=== PATIENT | male | born 1950 | race Caucasian/White ===

== ENCOUNTER → 2016-10-31 | Outpatient (CLI) | payer MEDICARE, OTHER ==
[2016-10-31 14:57] LABS: PROTHROMBIN TIME 29.3 SEC (11.4-15.4)
== END ==
LOC: OD 14:11
PROVIDERS: ATTEND Internal Medicine
DX: I48.2 Chronic atrial fibrillation (principal)
CPT/HCPCS: 36415; 85610

== ENCOUNTER → 2016-12-22 | Outpatient (CLI) | payer MEDICARE, OTHER ==
[2016-12-22 14:59] LABS: PROTHROMBIN TIME 25.1 SEC (11.4-15.4)
== END ==
LOC: OD 13:15
PROVIDERS: ATTEND Internal Medicine
DX: I48.2 Chronic atrial fibrillation (principal)
CPT/HCPCS: 36415; 85610

== ENCOUNTER → 2017-04-19 | Outpatient (CLI) | payer MEDICARE, OTHER ==
[2017-04-19 17:19] LABS: PROTHROMBIN TIME 24.6 SEC (11.4-15.4)
== END ==
LOC: OD 16:14
PROVIDERS: ATTEND Internal Medicine
DX: I48.2 Chronic atrial fibrillation (principal)
CPT/HCPCS: 36415; 85610

== ENCOUNTER → 2017-05-18 | Outpatient (CLI) | payer MEDICARE, OTHER ==
[2017-05-18 17:30] LABS: PROTHROMBIN TIME 22.2 SEC (11.4-15.4)
== END ==
LOC: OD 16:14
PROVIDERS: ATTEND Internal Medicine
DX: I48.2 Chronic atrial fibrillation (principal)
CPT/HCPCS: 36415; 85610

== ENCOUNTER → 2017-06-16 | Outpatient (CLI) | payer MEDICARE, OTHER ==
[2017-06-16 18:52] LABS: PROTHROMBIN TIME 28.6 SEC (11.4-15.4)
== END ==
LOC: OD 16:40
PROVIDERS: ATTEND Internal Medicine
DX: I48.2 Chronic atrial fibrillation (principal); Z79.01 Long term (current) use of anticoagulants
CPT/HCPCS: 36415; 85610

== ENCOUNTER → 2017-07-13 | Outpatient (CLI) | payer MEDICARE, OTHER ==
[2017-07-13 16:21] LABS: PROTHROMBIN TIME 22.4 SEC (11.4-15.4)
== END ==
LOC: OD 15:23
PROVIDERS: ATTEND Internal Medicine
DX: I48.2 Chronic atrial fibrillation (principal)
CPT/HCPCS: 36415; 85610

== ENCOUNTER → 2017-07-26 | Outpatient (CLI) | payer MEDICARE, OTHER ==
[2017-07-26 15:16] LABS: PROTHROMBIN TIME 34.9 SEC (11.4-15.4)
== END ==
LOC: OD 14:11
PROVIDERS: ATTEND Internal Medicine
DX: I48.2 Chronic atrial fibrillation (principal); Z79.01 Long term (current) use of anticoagulants
CPT/HCPCS: 36415; 85610

== ENCOUNTER → 2017-08-24 | Outpatient (CLI) | payer MEDICARE, OTHER | LOC: OD 15:04 | PROVIDERS: ATTEND Internal Medicine | DX: I48.2 Chronic atrial fibrillation (principal) | CPT/HCPCS: 36415; 85610 ==

== ENCOUNTER → 2017-10-06 | Outpatient (CLI) | payer MEDICARE, OTHER ==
[2017-10-06 14:43] LABS: INTERNATIONAL RATION (INR) 3.12; PROTHROMBIN TIME 33.6 SEC (11.4-15.4)
== END ==
LOC: OD 13:56
PROVIDERS: ATTEND Internal Medicine
DX: I48.2 Chronic atrial fibrillation (principal)
CPT/HCPCS: 36415; 85610

== ENCOUNTER → 2017-10-19 | Outpatient (CLI) | payer MEDICARE, OTHER ==
[2017-10-19 15:20] LABS: INTERNATIONAL RATION (INR) 1.81
== END ==
LOC: OD 14:12
PROVIDERS: ATTEND Internal Medicine
DX: I48.2 Chronic atrial fibrillation (principal); Z79.01 Long term (current) use of anticoagulants
CPT/HCPCS: 36415; 85610

== ENCOUNTER → 2017-11-17 | Outpatient (CLI) | payer MEDICARE, OTHER | LOC: OD 16:33 | PROVIDERS: ATTEND Internal Medicine | DX: I48.2 Chronic atrial fibrillation (principal); Z79.01 Long term (current) use of anticoagulants | CPT/HCPCS: 36415; 85610 ==

== ENCOUNTER → 2018-01-12 | Outpatient (CLI) | payer MEDICARE, OTHER ==
[2018-01-12 10:58] LABS: PROTHROMBIN TIME 21.7 SEC (11.4-15.4)
== END ==
LOC: OD 10:06
PROVIDERS: ATTEND Internal Medicine
DX: I48.2 Chronic atrial fibrillation (principal)
CPT/HCPCS: 36415; 85610

== ENCOUNTER → 2018-01-30 | Outpatient (CLI) | payer MEDICARE, OTHER ==
[2018-01-30 16:39] LABS: INTERNATIONAL RATION (INR) 1.86; PROTHROMBIN TIME 22.3 SEC (11.4-15.4)
== END ==
LOC: OD 15:31
PROVIDERS: ATTEND Internal Medicine
DX: I48.2 Chronic atrial fibrillation (principal); Z79.01 Long term (current) use of anticoagulants
CPT/HCPCS: 36415; 85610

== ENCOUNTER → 2018-02-14 | Outpatient (CLI) | payer MEDICARE, OTHER ==
[2018-02-14 18:57] LABS: INTERNATIONAL RATION (INR) 1.65; PROTHROMBIN TIME 20.3 SEC (11.4-15.4)
== END ==
LOC: OD 17:31
PROVIDERS: ATTEND Internal Medicine
DX: I48.2 Chronic atrial fibrillation (principal)
CPT/HCPCS: 36415; 85610

== ENCOUNTER → 2018-03-07 | Outpatient (CLI) | payer MEDICARE, OTHER ==
[2018-03-07 16:14] LABS: PROTHROMBIN TIME 30.8 SEC (11.4-15.4)
== END ==
LOC: OD 14:50
PROVIDERS: ATTEND Internal Medicine
DX: I48.2 Chronic atrial fibrillation (principal); Z79.01 Long term (current) use of anticoagulants
CPT/HCPCS: 36415; 85610

== ENCOUNTER → 2018-03-27 | Outpatient (CLI) | payer MEDICARE, OTHER ==
--- NOTE | 2018-03-27 11:51 | RADIOLOGY REPORT (SQ) ---
EXAM DESCRIPTION: CHEST PA/LATERAL COMPLETED DATE/TIME: 03/27/2018 11:34 am REASON FOR STUDY: COUGH COMPARISON: None. EXAM PARAMETERS: NUMBER OF VIEWS: two views TECHNIQUE: Digital Frontal and Lateral radiographic views of the chest acquired. RADIATION DOSE: NA LIMITATIONS: none FINDINGS: LUNGS AND PLEURA: No opacities, masses or pneumothorax. No pleural effusion. MEDIASTINUM AND HILAR STRUCTURES: Calcified right hilar lymph node and medial right upper lobe calcif ied granuloma. HEART AND VASCULAR STRUCTURES: Heart normal size. No evidence for failure. BONES: Osteopenic. Diffuse degenerative disc changes thoracic spine HARDWARE: None in the chest. OTHER: No other significant finding. IMPRESSION: No acute changes TECHNICAL DOCUMENTATION: JOB ID: [id number] [email or web address] All Rights Reserved Reading location - IP/workstation name: [email or web address]
[2018-03-27 12:03] LABS: ALANINE AMINOTRANSFERASE 23 U/L (21-72); ALBUMIN 4.2 g/dL (3.5-5.0); ALKALINE PHOSPHATASE 69 U/L (38-126); ANION GAP 12 (5-19); ASPARTATE AMINO TRANSFERASE 21 U/L (17-59); BILIRUBIN,DIRECT 0.3 mg/dL (0.0-0.4); BILIRUBIN,TOTAL 0.6 mg/dL (0.2-1.3); BLOOD UREA NITROGEN 19 mg/dL (7-20); CARBON DIOXIDE 28 mmol/L (22-30); CHLORIDE 107 mmol/L (98-107); CHOLESTEROL 92.93 mg/dL (0-200); GLUCOSE 176 mg/dL (75-110); POTASSIUM 4.4 mmol/L (3.6-5.0); PROTHROMBIN TIME 25.5 SEC (11.4-15.4); SODIUM 146.5 mmol/L (137-145); TOTAL PROTEIN 7.7 g/dL (6.3-8.2); TRIGLYCERIDES 106 mg/dL (<150)
[2018-03-27 12:13] LABS: DIRECT LDL 42 mg/dL (<100)
== END ==
LOC: OD 10:49
PROVIDERS: ATTEND Internal Medicine
DX: E78.2 Mixed hyperlipidemia (principal); R05 Cough; E11.65 Type 2 diabetes mellitus with hyperglycemia; I48.2 Chronic atrial fibrillation
CPT/HCPCS: 36415; 71046; 80053; 80061; 82043; 82570; 83036; 85610

== ENCOUNTER → 2018-07-11 | Outpatient (CLI) | payer MEDICARE, OTHER ==
[2018-07-11 18:03] LABS: PROTHROMBIN TIME 40.8 SEC (11.4-15.4)
== END ==
LOC: OD 16:47
PROVIDERS: ATTEND Internal Medicine
DX: I48.2 Chronic atrial fibrillation (principal)
CPT/HCPCS: 36415; 85610

== ENCOUNTER → 2018-07-24 | Outpatient (CLI) | payer MEDICARE, OTHER ==
[2018-07-24 11:57] LABS: PROTHROMBIN TIME 32.6 SEC (11.4-15.4)
== END ==
LOC: OD 10:14
PROVIDERS: ATTEND Internal Medicine
DX: I48.2 Chronic atrial fibrillation (principal); Z51.81 Encounter for therapeutic drug level monitoring; Z79.01 Long term (current) use of anticoagulants
CPT/HCPCS: 36415; 85610

== ENCOUNTER 2018-07-26 16:58 | Emergency (ER) | payer MEDICARE, OTHER ==
--- NOTE | 2018-07-26 17:53 | ER Document Report ---
ED Medical Screen (RME) - General Chief Complaint: Dizziness Stated Complaint: DIZZY Time Seen by Provider: 07/26/18 17:45 Notes: 67 years old male presents today with dizziness and lightheadedness over the last 2-3 weeks. He has been losing weight within a month he has lost about 15 pounds. He takes digoxin, Cardizem, metoprolol for his blood pressure and A. fib. History of diabetes, hypertension and A. fib. Smokes half a pack a day EKG shows heart rate of around 40 bpm. TRAVEL OUTSIDE OF THE [place] IN LAST 30 DAYS: No - Related Data Allergies/Adverse Reactions: No Known Allergies Allergy (Verified 07/26/18 17:00) Physical Exam - Vital signs Vitals: Temp Pulse Resp BP Pulse Ox 97.8 F 44 L 20 116/57 L 99 07/26/18 17:25 07/26/18 17:25 07/26/18 17:25 07/26/18 17:25 07/26/18 17:25 Course - Vital Signs Vital signs: Temp Pulse Resp BP Pulse Ox 97.8 F 44 L 20 116/57 L 99 07/26/18 17:25 07/26/18 17:25 07/26/18 17:25 07/26/18 17:25 07/26/18 17:25 Doctor's Discharge - Discharge Referrals: PATR[facility] S[facility] SCREEN FRAME ASSEMBLER [Primary Care Provider] - Follow up as needed
--- NOTE | 2018-07-26 18:29 | EKG REPORT ---
SEVERITY:- ABNORMAL ECG - JUNCTIONAL ESCAPE RHYTHM BORDERLINE T ABNORMALITIES, INFERIOR LEADS : Confirmed by: Regan Linton MD 26-Jul-2018 18:28:36
[2018-07-26 18:46] LABS: ABSOLUTE BASOPHILS # (AUTO) 0.1 10^3/uL (0.0-0.2); ABSOLUTE EOSINOPHILS # (AUTO) 0.3 10^3/uL (0.0-0.6); ABSOLUTE LYMPHOCYTES (AUTO) 1.7 10^3/uL (0.5-4.7); ABSOLUTE MONOCYTES (AUTO) 0.7 10^3/uL (0.1-1.4); ABSOLUTE NEUT (AUTO) 5.6 10^3/uL (1.7-8.2); BASOPHILS % (AUTO) 0.6 % (0-2); EOSINOPHILS % (AUTO) 3.6 % (0-6); HEMATOCRIT 32.8 % (37.9-51.0); HEMOGLOBIN 10.9 g/dL (13.5-17.0); LYMPHOCYTES % (AUTO) 20.6 % (13-45); MEAN CORPUSCULAR HEMOGLOBIN 28.4 pg (27.0-33.4); MEAN CORPUSCULAR HGB CONC 33.1 g/dL (32.0-36.0); MEAN CORPUSCULAR VOLUME 86 fl (80-97); MONOCYTES % (AUTO) 8.4 % (3-13); PLATELET COUNT 207 10^3/uL (150-450); RED BLOOD COUNT 3.83 10^6/uL (4.35-5.55); SEGMENTED NEUTROPHILS % (AUTO) 66.8 % (42-78); TOTAL CELLS COUNTED % (AUTO) 100 %; WHITE BLOOD COUNT 8.3 10^3/uL (4.0-10.5)
[2018-07-26 18:51] LABS: INTERNATIONAL RATION (INR) 3.49; PROTHROMBIN TIME 36.7 SEC (11.4-15.4)
[2018-07-26 19:10] LABS: ALANINE AMINOTRANSFERASE 21 U/L (21-72); ALBUMIN 3.9 g/dL (3.5-5.0); ALKALINE PHOSPHATASE 82 U/L (38-126); ANION GAP 11 (5-19); ASPARTATE AMINO TRANSFERASE 20 U/L (17-59); BILIRUBIN,DIRECT 0.2 mg/dL (0.0-0.4); BILIRUBIN,TOTAL 0.4 mg/dL (0.2-1.3); BLOOD UREA NITROGEN 23 mg/dL (7-20); CALCIUM 9.2 mg/dL (8.4-10.2); CARBON DIOXIDE 23 mmol/L (22-30); CHLORIDE 107 mmol/L (98-107); CREATINE KINASE 44 U/L (55-170); DIGOXIN 1.25 ng/mL (0.8-2.0); GLUCOSE 262 mg/dL (75-110); POTASSIUM 4.8 mmol/L (3.6-5.0); SODIUM 140.9 mmol/L (137-145); TOTAL PROTEIN 7.2 g/dL (6.3-8.2)
[2018-07-26 19:19] LABS: CREATINE KINASE MB 0.77 ng/mL (<4.55)
[2018-07-26 19:24] LABS: TROPONIN I < 0.012 ng/mL
--- NOTE | 2018-07-26 19:53 | ER Document Report ---
ED General - General Chief Complaint: Dizziness Stated Complaint: DIZZY Time Seen by Provider: 07/26/18 17:45 Notes: Patient is a 67-year-old male with a past medical history of atrial fibrillation currently anticoagulated on warfarin, rate controlled with digoxin , metoprolol, diltiazem who presents with 1 month of intermittent lightheadedness, exertional shortness of breath and fatigue. The patient has lost 50 pounds over the past several months. He denies any chest pain. States that he came to the hospital today versus the past several days because he actually informed his today of the symptoms that he had been having. She checked his vitals, found his heart rate to be low prompting them to come to the emergency department. He did have an echocardiogram earlier today as he had contacted his sales and service agent about his symptoms and this had been ordered. Patient denies a history of similar symptoms in the past. He notes that when he is resting he feels completely fine. Exerting himself does trigger his lightheadedness. TRAVEL OUTSIDE OF THE [place] IN LAST 30 DAYS: No - Related Data Allergies/Adverse Reactions: No Known Allergies Allergy (Verified 07/26/18 17:00) Past Medical History - General Information source: Patient - Social History Smoking Status: Current Every Day Smoker Chew tobacco use (# tins/day): No Frequency of alcohol use: Rare Drug Abuse: None Lives with: Spouse/Significant other Family History: Reviewed & Not Pertinent Patient has suicidal ideation: No Patient has homicidal ideation: No - Past Medical History Cardiac Medical History: Reports: Hx Atrial Fibrillation, Hx Hypercholesterolemia, Hx Hypertension Endocrine Medical History: Reports: Hx Diabetes Mellitus Type 2 Renal/ Medical History: Denies: Hx Peritoneal Dialysis Review of Systems - Review of Systems Notes: Constitutional: Negative for fever. HENT: Negative for sore throat. Eyes: Negative for visual changes. Cardiovascular: Negative for chest pain. Positive for bradycardia Respiratory: Positive for exertional dyspnea Gastrointestinal: Negative for abdominal pain, vomiting or diarrhea. Genitourinary: Negative for dysuria. Musculoskeletal: Negative for back pain. Skin: Negative for rash. Neurological: Negative for headaches, weakness or numbness. 10 point ROS negative except as marked above and in HPI. Physical Exam - Vital signs Vitals: Temp Pulse Resp BP Pulse Ox 97.8 F 44 L 20 116/57 L 99 07/26/18 17:25 07/26/18 17:25 07/26/18 17:25 07/26/18 17:25 07/26/18 17:25 Interpretation: Bradycardic Notes: PHYSICAL EXAMINATION: GENERAL: Well-appearing, well-nourished and in no acute distress. HEAD: Atraumatic, normocephalic. EYES: Pupils equal round and reactive to light, extraocular movements intact, sclera anicteric, conjunctiva are normal. ENT: nares patent, oropharynx clear without exudates. Moist mucous membranes. NECK: Normal range of motion, supple without lymphadenopathy LUNGS: Breath sounds clear to auscultation bilaterally and equal. No wheezes rales or rhonchi. HEART: Irregularly irregular bradycardia without murmurs ABDOMEN: Soft, nontender, normoactive bowel sounds. No guarding, no rebound. No masses appreciated. EXTREMITIES: Normal range of motion, no pitting or edema. No cyanosis. NEUROLOGICAL: No focal neurological deficits. Moves all extremities spontaneously and on command. PSYCH: Normal mood, normal affect. SKIN: Warm, Dry, normal turgor, no rashes or lesions noted. Course - Re-evaluation Re-evalutation: 07/26/18 19:55 Patient presents with likely medication induced bradycardia that has become symptomatic with associated lightheadedness and exertional intolerance. Symptoms have been ongoing for the past 1 month. Labs unremarkable with exception of a mild acute kidney injury likely secondary to dehydration. Troponin normal. Patient is on a significant amount of medication including digoxin, diltiazem and metoprolol. I have advised him to discontinue diltiazem and continue the digoxin and metoprolol. I have also requested that he immediately contact his sales and service agent regarding these medication changes. His INR is also noted to be supratherapeutic. I have advised him to hold his Coumadin for 1 day and then restart the medication as regularly prescribed. We have also discussed considering transition to a NOAC. At this time will discharge with return precautions and follow-up recommendations. Verbal discharge instructions given a the bedside and opportunity for questions given. Medication warnings reviewed. Patient is in agreement with this plan and has verbalized understanding of return precautions and the need for primary care follow-up in the next 24-72 hours. - Vital Signs Vital signs: Temp Pulse Resp BP Pulse Ox 97.8 F 44 L 15 108/62 99 10/18/18 17:25 07/26/18 17:25 07/26/18 19:01 07/26/18 19:01 07/26/18 19:01 - Laboratory Result Diagrams: 07/26/18 18:25 07/26/18 18:25 Laboratory results interpreted by me: 07/26/18 07/26/18 07/26/18 18:25 18:25 18:25 RBC 3.83 L Hgb 10.9 L Hct 32.8 L RDW 15.0 H PT 36.7 H BUN 23 H Creatinine 1.58 H Est GFR ( Amer) 53 L Est GFR (Non-Af Amer) 44 L Glucose 262 H Creatine Kinase 44 L - EKG Interpretation by Me Additional EKG results interpreted by me: 07/26/18 19:56 Junctional escape rhythm, bradycardia, rate 40. No ST elevations or depressions. QTC 353. Discharge - Discharge Clinical Impression: Drug-induced bradycardia, Lightheadedness Condition: Good Disposition: HOME, SELF-CARE Additional Instructions: Please discontinue your diltiazem. Continue your digoxin and metoprolol as prescribed. Please contact her sales and service agent immediately regarding your medication changes and your emergency department visit today. You should also hold your Coumadin for 1 day as your INR was supratherapeutic today at 3.5. Your labs have been included for your reference. Return if you pass out, develop chest pain, become short of breath, or have any other symptoms that are worrisome to you. Referrals: PATRIC H[facility] HIDE BUFFER [Primary Care Provider] - Follow up as needed
[2018-07-26 20:23] VITALS: BP 105/56
== END 2018-07-26 20:15 | disposition home or self-care (01) ==
LOC: ER 16:58
DX: R00.1 Bradycardia, unspecified (principal); T50.905A Adverse effect of unspecified drugs, medicaments and biological substances, initial encounter; R42 Dizziness and giddiness; I48.91 Unspecified atrial fibrillation; F17.200 Nicotine dependence, unspecified, uncomplicated; E78.00 Pure hypercholesterolemia, unspecified; E11.9 Type 2 diabetes mellitus without complications; Z79.01 Long term (current) use of anticoagulants
CPT/HCPCS: 36415; 80053; 80162; 82550; 82553; 84484; 85025; 85610; 93005; 93010; 99284

== ENCOUNTER → 2018-07-26 | Outpatient (CLI) | payer MEDICARE, OTHER ==
--- NOTE | 2018-07-26 20:33 | XCELERA REPORT ---
[address] [address] Transthoracic Echocardiogram Report Name: HEATHER FOOTE Age: 67 yrs Gender: Male : 1950 Patient Status: Outpatient Patient Location: [facility] Study Date: 07/26/2018 09:21 AM Height: 73 in Weight: 230 lb BSA: 2.3 m2 Reason For Study: A FIB Ordering Physician: RAVEN, NO Performed By: Deneen Theodore Interpretation Summary Limited study due ti 239# and 6'1" inch tall. BSA 2.28m2. No significant Post pericardial effusion Calcific Aortic valvular stenosis, mild by doppler, configuration not visualised, cannot r/o bicuspid valvular disease, probably not BAV due to no AR and no Ao root enlargement. No MS, no MR but LA is probably mild/mod enlarged with no obvious LA clot. LV shows no LVH, no LV enlargement, Normal LVEF >65% hased on PLAX and A4C view lacking A2C view correlation. Incomplete LV segmental analysis, due to lacking certain views. see pictorals. R heart is also poorly seen , RVSP best estim to be 41 mm Hg or mod pulm. hypertension, with IVC dilated to 21mm. MMode/2D Measurements & Calculations RVDd: 3.8 cm LVIDd: 5.3 cm FS: 37.9 % Ao root diam: 3.5 cm IVSd: 0.98 cm LVIDs: 3.3 cm EDV(Teich): 137.6 ml LVPWd: 0.98 cm ESV(Teich): 44.6 ml Ao root area: 9.6 cm2 LA dimension: 4.5 cm EF(Teich): 67.6 % Doppler Measurements & Calculations MV E max vadim: MV P1/2t max vadim: Ao V2 max: LV V1 max P.4 cm/sec 90.8 cm/sec 250.1 cm/sec 4.4 mmHg MV A max vadim: MV P1/2t: 75.5 msec Ao max PG: LV V1 mean P.6 cm/sec MVA(P1/2t): 2.9 cm2 25.4 mmHg 2.2 mmHg MV E/A: 3.1 MV dec slope: Ao V2 mean: LV V1 max: 184.1 cm/sec 104.8 cm/sec 352.5 cm/sec2 Ao mean PG: LV V1 mean: MV dec time: 0.24 sec 15.3 mmHg 70.4 cm/sec Ao V2 VTI: 51.4 cm LV V1 VTI: 19.2 cm TV V2 max: PA V2 max: MV P1/2t-pr_phl: 256.3 cm/sec 92.3 cm/sec 75.5 msec TV max PG: PA max P.4 mmHg 26.3 mmHg Left Ventricle The left ventricle is grossly normal size. There is normal left ventricular wall thickness. The left ventricular ejection fraction is normal. LV diastolic function not assessed. Not all wall segments were well visualized. There is inferoseptal wall mild hypokinesis. No standard apical 2 chamber view for review. There is no thrombus. Right Ventricle The right ventricle is grossly normal size. Atria The right atrium is normal in size. GEMMA on only the apical 4 chamber view is 47.8cc.m2, there is no apical 2 chamber view to calculate a true biplane GEMMA. Overall opinion is there is mild/mod LA enlargement. The interatrial septum is intact with no evidence for an atrial septal defect. Mitral Valve There is mild mitral annular calcification. The mitral valve is normal in structure and function. There is no evidence of mitral valve prolapse. There is no mitral valve stenosis. There is no mitral regurgitation noted. Aortic Valve The aortic valve is normal in structure but functionally abnormal. There is systolic doming of the aortic valve leaflets(s). The aortic valve is moderately calcified. The aortic valve is not well visualized secondary to technical limitations. Cannot exclude aortic valvular vegetation. There is mild aortic stenosis. There is a peak gradient of 25 mm of Hg. MPG is 15mm Hg. No aortic regurgitation is present. Tricuspid Valve The tricuspid valve is not well visualized secondary to technical limitations. Best estimated RVSP is approximately 26+15= 41 mm/Hg. Pulmonic Valve The pulmonic valve is not well visualized. Great Vessels There is aortic root sclerosis/calcification. The aortic root is normal size. The inferior vena cava appeared dilated and decreased < 50% with respiration (RAP 15-20 mmHg). Effusions There is no pericardial effusion. I WMSI = 1.11 % Normal = 89 Segments Size X - Cannot 1 - Normal 2 - 3 - Akinetic4 - 1-2 small Interpret Hypokinetic Dyskinetic 3-5 moderate 5 - 6-14 large Aneurysmal 15-16 diffuse : RAVEN, NO > Regan Linton
== END ==
LOC: SP 08:29
PROVIDERS: ATTEND Nurse Practitioner
DX: I48.91 Unspecified atrial fibrillation (principal)
CPT/HCPCS: 93306

== ENCOUNTER → 2018-08-15 | Outpatient (CLI) | payer MEDICARE, OTHER ==
[2018-08-15 15:56] LABS: INTERNATIONAL RATION (INR) 2.52; PROTHROMBIN TIME 28.4 SEC (11.4-15.4)
== END ==
LOC: OD 15:11
PROVIDERS: ATTEND Internal Medicine
DX: I48.2 Chronic atrial fibrillation (principal)
CPT/HCPCS: 36415; 85610

== ENCOUNTER → 2018-09-24 | Outpatient (CLI) | payer MEDICARE, OTHER ==
[2018-09-24 16:25] LABS: INTERNATIONAL RATION (INR) 3.34; PROTHROMBIN TIME 35.4 SEC (11.4-15.4)
== END ==
LOC: OD 15:03
PROVIDERS: ATTEND Internal Medicine
DX: I48.2 Chronic atrial fibrillation (principal)
CPT/HCPCS: 36415; 85610

== ENCOUNTER → 2018-10-24 | Outpatient (CLI) | payer MEDICARE, OTHER ==
[2018-10-24 13:15] LABS: INTERNATIONAL RATION (INR) 2.88; PROTHROMBIN TIME 31.5 SEC (11.4-15.4)
== END ==
LOC: OD 12:07
PROVIDERS: ATTEND Internal Medicine
DX: I48.2 Chronic atrial fibrillation (principal)
CPT/HCPCS: 36415; 85610

== ENCOUNTER → 2018-11-23 | Outpatient (CLI) | payer MEDICARE, OTHER ==
[2018-11-23 17:50] LABS: PROTHROMBIN TIME 30.8 SEC (11.4-15.4)
== END ==
LOC: OD 15:59
PROVIDERS: ATTEND Internal Medicine
DX: I48.2 Chronic atrial fibrillation (principal)
CPT/HCPCS: 36415; 85610

== ENCOUNTER → 2018-12-20 | Outpatient (CLI) | payer MEDICARE, OTHER ==
[2018-12-20 17:06] LABS: INTERNATIONAL RATION (INR) 3.07; PROTHROMBIN TIME 33.1 SEC (11.4-15.4)
== END ==
LOC: OD 16:13
PROVIDERS: ATTEND Internal Medicine
DX: I48.2 Chronic atrial fibrillation (principal)
CPT/HCPCS: 36415; 85610

== ENCOUNTER → 2019-01-16 | Outpatient (CLI) | payer MEDICARE, OTHER ==
[2019-01-16 15:03] LABS: INTERNATIONAL RATION (INR) 2.67; PROTHROMBIN TIME 29.7 SEC (11.4-15.4)
== END ==
LOC: OD 13:59
PROVIDERS: ATTEND Internal Medicine
DX: I48.2 Chronic atrial fibrillation (principal)
CPT/HCPCS: 36415; 85610

== ENCOUNTER → 2019-02-14 | Outpatient (CLI) | payer MEDICARE, OTHER ==
[2019-02-14 11:13] LABS: INTERNATIONAL RATION (INR) 3.04; PROTHROMBIN TIME 32.9 SEC (11.4-15.4)
== END ==
LOC: OD 10:32
PROVIDERS: ATTEND Internal Medicine
DX: I48.2 Chronic atrial fibrillation (principal)
CPT/HCPCS: 36415; 85610

== ENCOUNTER → 2019-03-20 | Outpatient (CLI) | payer MEDICARE, OTHER ==
[2019-03-20 09:41] LABS: INTERNATIONAL RATION (INR) 2.41; PROTHROMBIN TIME 27.4 SEC (11.4-15.4)
== END ==
LOC: OD 09:03
PROVIDERS: ATTEND Internal Medicine
DX: I48.2 Chronic atrial fibrillation (principal)
CPT/HCPCS: 36415; 85610

== ENCOUNTER → 2019-04-18 | Outpatient (CLI) | payer MEDICARE, OTHER ==
[2019-04-18 13:39] LABS: INTERNATIONAL RATION (INR) 2.84; PROTHROMBIN TIME 30.4 SEC (11.4-15.4)
== END ==
LOC: OD 12:26
PROVIDERS: ATTEND Internal Medicine
DX: I48.2 Chronic atrial fibrillation (principal)
CPT/HCPCS: 36415; 85610

== ENCOUNTER 2019-09-03 06:37 | Day surgery (SDC) | payer MEDICARE, OTHER ==
[~2019-09-03 06:37] MED LIST: BUPIVACAINE HCL 0.75% INJ/PF (7.5 MG/1 ML) 10 ML SDV OS PRN; KETOROLAC TROMETHAMINE 0.45% 4 DROP/0.4 ML DROPERETTE OS PRN; LIDOCAINE 4% INJ/PF (40 MG/ML) 5 ML AMPUL OS PRN
[2019-09-03] MEDS ORDERED: MIDAZOLAM 2 MG/2 ML INJ ONE (06:46)
[2019-09-03] MEDS ORDERED: FENTANYL CITRATE INJ/PF 100 MCG/2 ML AMPUL ONE (06:46)
[2019-09-03] MEDS ORDERED: ONDANSETRON HCL INJ/PF 4 MG/2 ML SDV ONE (06:46)
[2019-09-03] MEDS: BESIFLOXACIN HCL 0.6% OPH SUSP 5 ML BOTTLE OS PRN ×4 (06:55→08:00)
[2019-09-03] MEDS: CYCLOPENTOLATE 0.2%/PHENYLEPHRINE 1% OPH SOLN 2 ML OS PRN ×3 (06:55→07:15)
[2019-09-03] MEDS: TROPICAMIDE 1% OPH SOLN 15 ML OS PRN ×3 (06:55→07:15)
[2019-09-03] MEDS: TETRACAINE HCL 0.5% OPH SOLN 4 ML OS PRN ×4 (06:55→07:37)
[2019-09-03] MEDS: CHONDR SU A NA/HYALUR INTRAOC KIT (SURGICARE) ONE ×2 (07:44)
[2019-09-03] MEDS: EPINEPHRINE INJ/PF 1 MG/1 ML AMPULE ONE ×2 (07:44)
[2019-09-03] MEDS: LIDOCAINE 1% INJ-PF (10 MG/ML) 30 ML SDV ONE ×2 (07:44)
[2019-09-03] MEDS: DORZOLAMIDE HCL 2%/TIMOLOL MALEAT 0.5% OPH SOLN 10 ML OS PRN ×2 (08:00)
--- NOTE | 2019-09-03 11:14 | Operative Report ---
Operative Report-[facility] Operative Report: DATE OF SURGERY: 09/03/2019 PREOPERATIVE DIAGNOSIS: CATARACT, LEFT EYE. POSTOPERATIVE DIAGNOSIS: CATARACT, LEFT EYE. PROCEDURE PERFORMED: PHACOEMULSIFICATION WITH POSTERIOR CHAMBER INTRAOCULAR LENS, LEFT EYE. Intraocular Lens Model : MX60E 20.0 Total Phaco Time: 10.16 CDE SURGEON: CONOR ATKINS MD ANESTHESIA: TOPICAL WITH MAC. INDICATIONS FOR SURGERY: Difficultly driving at night PROCEDURE: The patient was brought to the Operating Room and placed on the operative table. Following tetracaine drops, topical anesthesia was administered. This consisted of instrument wipe pledgets soaked in a solution of 4% Xylocaine mixed with 0.75% Marcaine in a 1:2 ratio. A 2 x 1 cm pledget was placed in the superior fornix. A 1 x 1 cm pledget was placed in the inferior fornix. The eye was patched shut for 5 minutes. The patch was removed. The eye was sterilely prepped and draped in the usual manner. Lid speculum was placed in the eye. The pledgets were removed. 4-0 black silk sutures were placed around the superior and the inferior rectus muscles to be used as traction. A conjunctival peritomy was made at the 10 o'clock position. Hemostasis was obtained with bipolar cautery. A posterior limbal groove was created using a crescent knife and dissected anteriorly towards the cornea. A sharp point blade was used to create a paracentesis site at the 2 o'clock position. 0.2 cc non preserved Lidocaine was injected into the anterior chamber. A 2.4 mm keratome was used to enter the anterior chamber through the groove. Viscoelastic was injected into the anterior chamber. An anterior capsulotomy was performed using Utrata forceps in a capsulorrhexis fashion. Hydrodissection and hydrodelineation were performed. Phacoemulsification was performed in [id number] technique. Following this, the I/A unit was used to remove residual cortex. Viscoelastic was injected into the capsular bag. The Intraocular lens was placed in the capsular bag. The I/A unit was used to remove residual viscoelastic. The wound was seen to be watertight under high and low pressure, and no sutures were placed. The intraocular lens was well centered. The pressure was adjusted in the eye to normal pressure. The 4-0 black silk sutures and lid speculum were removed. The eye was shielded after Besivance and Cosopt drops were placed. The patient tolerated the procedure well and was sent to the Recovery Room in good condition.
== END 2019-09-03 08:35 | disposition home or self-care (01) ==
LOC: SC 06:37
PROVIDERS: ATTEND Ophthalmology
DX: H25.813 Combined forms of age-related cataract, bilateral (principal); E11.3291 Type 2 diabetes mellitus with mild nonproliferative diabetic retinopathy without macular edema, right eye; H04.123 Dry eye syndrome of bilateral lacrimal glands; I10 Essential (primary) hypertension; E78.00 Pure hypercholesterolemia, unspecified; F17.210 Nicotine dependence, cigarettes, uncomplicated; Z79.899 Other long term (current) drug therapy; Z79.01 Long term (current) use of anticoagulants; Z79.84 Long term (current) use of oral hypoglycemic drugs; I48.91 Unspecified atrial fibrillation
CPT/HCPCS: 66984; 82962; V2632; J3490 ×5; A9270; J0171; J3010; J2405; 142; J2250

== ENCOUNTER → 2020-09-29 | Outpatient (CLI) | payer MEDICARE, OTHER ==
[2020-09-29 08:55] LABS: ALBUMIN 4.2 g/dL (3.5-5.0); ALKALINE PHOSPHATASE 76 U/L (38-126); ANION GAP 10 (5-19); ASPARTATE AMINO TRANSFERASE 31 U/L (17-59); BILIRUBIN,DIRECT 0.2 mg/dL (0.0-0.4); BILIRUBIN,TOTAL 0.6 mg/dL (0.2-1.3); BLOOD UREA NITROGEN 23 mg/dL (7-20); CALCIUM 10.2 mg/dL (8.4-10.2); CARBON DIOXIDE 29 mmol/L (22-30); CHLORIDE 103 mmol/L (98-107); CHOLESTEROL 131.92 mg/dL (0-200); DIGOXIN 0.98 ng/mL (0.8-2.0); GLUCOSE 250 mg/dL (75-110); TOTAL PROTEIN 7.4 g/dL (6.3-8.2); TRIGLYCERIDES 266 mg/dL (<150)
[2020-09-29 09:05] LABS: DIRECT LDL 64 mg/dL (<100)
[2020-09-29 09:28] LABS: VLDL CHOLESTEROL 53.2 mg/dL (10-31)
[2020-09-30 10:37] LABS: CREATININE URINE 60.8 mg/dL (Not Estab.); MICROALBUMIN URINE 59.8 ug/mL (Not Estab.)
== END ==
LOC: OD 07:25
PROVIDERS: ATTEND Internal Medicine
DX: E78.2 Mixed hyperlipidemia (principal); Z12.5 Encounter for screening for malignant neoplasm of prostate; E11.65 Type 2 diabetes mellitus with hyperglycemia; I10 Essential (primary) hypertension; E78.00 Pure hypercholesterolemia, unspecified; I48.20 Chronic atrial fibrillation, unspecified
CPT/HCPCS: 82043; 82570; 36415; 80162; 80053; 83036; 80061; G0103